=== PATIENT | female | born 1945 | race African-American/Black ===

== ENCOUNTER 2017-02-18 12:55 | Observation (INO) | payer OTHER ==
[~2017-02-18] VITALS: Ht 160 cm; Wt 94.3 kg
[2017-02-18 14:20] LABS: Basophils # (auto) 0 uL; Basophils % (auto) 0.4 % (0.0-2.0); DEFINITIVE Y; Eosinophils # (auto) 0 uL; Hemoglobin 10.9 g/dL (12.2-16.2); Lymphocytes # (auto) 0.4 uL; Lymphocytes % (auto) 4.1 % (10.0-50.0); Mean Corpuscular Volume 87.7 fL (80.0-100.0); Mean Platelet Volume 10.3 fL (7.4-10.4); Monocytes # (auto) 0.2 uL; Monocytes % (auto) 1.9 % (0.0-12.0); Neutrophils # (auto) 9.2 uL; Neutrophils % (auto) 93.6 % (37.0-80.0); Platelet Count (auto) 199 10^3/uL (140-450); Red Cell Distribution Width 19.8 % (11.6-16.0); SUSPECT Y; White Blood Cell 9.8 10^3/uL (4.4-10.8)
[2017-02-18 14:26] LABS: Urine Bilirubin Negative (Negative); Urine Color Yellow (Yellow); Urine Glucose Normal (Normal); Urine Ketone Negative (Negative); Urine Mucus FEW (None Seen); Urine Nitrite Negative (Negative); Urine RBC 3 /hpf (0 - 4); Urine Squamous Epithelial Cell FEW /hpf (<5); Urine Urobilinogen Normal (Negative)
[2017-02-18 14:29] LABS: Urine Blood 1+ /uL (Negative)
[2017-02-18 14:31] LABS: Partial Thromboplastin Time 29.2 sec (22.64-33.71)
[2017-02-18 14:51] LABS: B-Type Natriuretic Peptide 370.51 pg/mL (0-100)
[2017-02-18 14:52] LABS: Albumin 3.1 g/dL (3.4-5.0); Alkaline Phosphatase 64 U/L (45-117); Anion Gap 4 (5-15); Aspartate Aminotransferase 20 U/L (15-37); Bilirubin, Total 0.7 mg/dL (0.2-1.0); Blood Urea Nitrogen 21 mg/dL (7-18); Calcium 8.7 mg/dL (8.5-10.1); Carbon Dioxide 27 mmol/L (21-32); Chloride 109 mmol/L (98-107); GFR African American 44 mL/min; GFR Non-African American 36 mL/min; Glucose 102 mg/dL (74-106); Magnesium 1.9 mg/dL (1.6-2.6); Potassium 4.2 mmol/L (3.5-5.1); Sodium 140 mmol/L (136-145); Total Protein 6.2 g/dL (6.4-8.2)
[2017-02-18 15:00] LABS: INR 2.4 (0.9-1.15); Prothrombin Time 26.4 sec (9.37-12.3)
[2017-02-18 15:08] LABS: Temperature: 23.1 C (20.0-25.0)
[2017-02-18] MEDS: cefTRIAXone 1GM/50ML D5W 50 ML IV ONE ×2 (15:50→16:38)
[2017-02-18] MEDS ORDERED: FUROSEMIDE 20 MG/2 ML VIAL IV ONE (17:45)
[2017-02-18 18:05] VITALS: BP 126/66
== END 2017-02-18 18:17 | disposition short-term general hospital (02) | DRG 313 ==
LOC: ER 12:55 → OVERFLOW 13:30 → ER 18:17
PROVIDERS: ADMIT Family Medicine; ATTEND Family Medicine
DX: R07.9 Chest pain, unspecified (principal); I50.42 Chronic combined systolic (congestive) and diastolic (congestive) heart failure; N39.0 Urinary tract infection, site not specified; I48.91 Unspecified atrial fibrillation; F41.9 Anxiety disorder, unspecified; D64.9 Anemia, unspecified; I11.0 Hypertensive heart disease with heart failure; Z82.49 Family history of ischemic heart disease and other diseases of the circulatory system; R53.1 Weakness
CPT/HCPCS: 36415; 71010; 80053; 81001; 83605; 83735; 83880; 84443; 84484; 85025; 85610; 85730; 87040; 93005; 96365; 96375; 99285; G0378; J0696; J1940